=== PATIENT | female | born 1985 | race Hispanic/Latino ===

== ENCOUNTER 2022-08-26 16:54 | Emergency (ER) | payer MEDICAID, SELFPAY ==
--- NOTE | ~2022-08-26 | US_ITS ---
EXAMINATION: US OB <= 14 weeks fetus DATE: 08/26/2022 21:06 INDICATION: Lower abdominal pain during first trimester TECHNIQUE: Real-time pelvic transabdominal and transvaginal ultrasound was performed. COMPARISON: None. FINDINGS: There is a single live intrauterine . The cervical length measures 6.3 cm. The cb centa is anterior. heart motion is identified measuring 161 beats per minute (bpm) by M-mode Do ppler. The following biometric data were obtained: Biparietal diameter (BPD): 2.2 cm; head circumference (HC): 8.0 cm; abdominal circumference (AC): 6.9 cm; femur length (FL): 1.1 cm. These measurements are concordant. Estimated weight is 76 g +/- 11 g, which correlates with the 97th percentile when 03/08/2023 is used as estimated date of delivery. As single measurements, these parameters are each equal to the following estimated gestational ages w ith ranges of +/- 2 standard deviations: BPD: 13 weeks 5 days +/- 1 weeks 1 days. HC: 13 weeks 3 days +/- 1 weeks 1 days. AC: 13 weeks 4 days +/- 1 weeks 5 days. FL: 13 weeks 2 days +/- 1 weeks 3 days. estimated gestational age based solely on measurements from this exam is 13 weeks 4 days +/- 1 weeks 0 days. The ovaries are not visualized however no adnexal abnormality is seen. There is no free fluid in the pelvis. IMPRESSION: 1. Estimated weight is 76 g +/- 11 g, which correlates with the 97th percentile when 03/08/2023 is used as estimated date of delivery. Reviewed, dictated and finalized at location F. L AIRCREWMAN MECHANICAL IMPRESSION: 1. Estimated weight is 76 g +/- 11 g, which correlates with the 97th perc entile when 03/08/2023 is used as estimated date of delivery.
--- NOTE | ~2022-08-26 | US_ITS ---
EXAMINATION: US renal BI DATE: 08/26/2022 21:06 INDICATION: Bilateral flank pain TECHNIQUE: Multiple grayscale and Doppler ultrasound images of the kidneys were obtained. COMPARISON: None. FINDINGS: The right kidney measures 10.8 x 4.9 x 5.8 cm. The left kidney measures 12.0 x 5.3 x 5.4 cm . The kidneys demonstrate normal parenchymal echogenicity. There is no hydronephrosis. The bladder is normal. IMPRESSION: 1. Normal kidneys without hydronephrosis. Reviewed, dictated and finalized at location F. T PRODUCTION COORDINATOR
--- NOTE | ~2022-08-26 | XR_ITS ---
EXAMINATION: XR chest 2V DATE: 08/26/2022 19:55 INDICATION: Shortness of breath TECHNIQUE: PA and lateral views of the chest are obtained. COMPARISON: None available FINDINGS: The lungs are free of acute opacities. No pleural effusion or pneumothorax. The cardiomedia stinal silhouette is normal. The visualized bones and soft tissues are unremarkable. IMPRESSION: 1. No acute cardiopulmonary abnormality. Reviewed, dictated and finalized at location F. HT CONTROL ENGINEER
[2022-08-26 18:51] VITALS: BP 135/86; PULSE 75; RESP 16; TEMP 36.9; O2SAT 97
--- NOTE | 2022-08-26 19:18 | ED.BACK ---
HPI - Back Pain/Injury General Chief Complaint: Back Pain/Injury Stated Complaint: Back pain Time Seen by Provider: 08/26/22 19:05 History of Present Illness HPI Narrative: Patient is a 37-year-old female who is currently about 10 weeks here for evaluation of upper back pain. Patient states the pain is located to the left side of her mid thoracic region. She has not attempted any medicine for her pain because she is unsure what she can take in . Denies any injury to her back. She is reporting some lower abdominal pain on the right. She denies any shortness of breath, chest pain, nausea, vomiting, vaginal bleeding. Related Data Allergies Allergy/AdvReac Type Severity Reaction Status Date / Time No Known Allergies Allergy Verified 08/26/22 19:30 Review of Systems Review of Systems: Gen: Denies fevers or chills Eyes: Denies eye pain or visual change ENT: Denies congestion Respiratory: Denies shortness of breath or cough CV: Denies chest pain or palpitations GI: Denies abdominal pain nausea, emesis or diarrhea : denies burning, urgency, frequency or hematuria Musculoskeletal: Reports upper back pain Neuro: Denies numbness, tingling, weakness or focal weakness Skin: Denies rash Except as documented, all other systems reviewed and negative Exam Narrative: APPEARANCE: Well appearing, no pain in distress, well-nourished. Head: Normocephalic and atraumatic. EYES: PERRLA/EOMI, conjunctivae clear NOSE: No nasal drainage EARS: External ear normal in appearance THROAT: Oropharynx is clear. Mucous membranes are moist. NECK: Supple. No adenopathy, no masses. RESPIRATORY: Airway patent, respirations nonlabored. Clear to auscultation bilaterally, no rales, rhonchi, wheezing. CARDIOVASCULAR: Regular rate and rhythm without murmurs, rubs, or gallops. ABDOMINAL: Normoactive bowel sounds. Soft, nontender, nondistended. No rebound tenderness or guarding. MUSCULOSKELETAL: She has no CVA tenderness bilaterally. No midline tenderness to C, T or L-spine. Extremities are warm and well-perfused. Moves all extremities well. No edema. NEURO: Normal speech. No focal neurologic deficits. SKIN: skin is warm and dry. No rashes. PSYCHIATRIC: Normal affect/mood. Course Vital Signs Vital signs: Vital Signs Temperature 98.5 F 08/26/22 18:51 Pulse Rate 75 08/26/22 18:51 Respiratory Rate 16 08/26/22 18:51 Blood Pressure 135/86 08/26/22 18:51 Pulse Oximetry 97 08/26/22 18:51 Temperature 98.5 F 08/26/22 18:51 Pulse Rate 61 08/26/22 21:30 Respiratory Rate 17 08/26/22 21:30 Blood Pressure 136/81 08/26/22 21:30 Pulse Oximetry 100 08/26/22 21:30 MDM - Back Pain/Injury MDM Narrative Medical decision making narrative: 37-year-old female here for evaluation of upper thoracic back pain in addition to some lower abdominal pain over the past several days. She is nontoxic in appearance and has normal vital signs, her heart and lungs are clear to auscultation. She has no abdominal tenderness on exam. No vaginal bleeding. Urine does show evidence of infection with leuks and white blood cells. Ultrasound obtained due to abdominal pain which shows a live IUP. Renal ultrasound obtained given presence of UTI and questionable flank pain which shows no evidence of hydronephrosis. Chest x-ray is clear. Patient feeling better after Tylenol. Very unlikely to be acute intra-abdominal process given location of pain and normal vital signs, lack of tenderness on exam. She be discharged home with antibiotics to treat for UTI and [employer] follow-up. Return precautions were discussed and she voiced understanding. Lab Data 08/26/22 19:35 08/26/22 19:35 Labs: Lab Results 08/26/22 08/26/22 08/26/22 Range/Units 19:35 19:35 19:37 WBC 11.6 H (4.5-10.0) K/mm3 RBC 4.52 (4.2-5.4) M/mm3 Hgb 14.1 (12.0-15.0) g/dL Hct 40.7 (37.0-47.0) % MCV 90.0 (80-100) fl MCH 31.
[2022-08-26] MEDS: ACETAMINOPHEN 325 MG TABLET 650 MG PO (19:31)
[2022-08-26 19:50] LABS: Basophils Percent Auto 0.3 % (0.2-1.2); Eosinophils Absolute Auto 0.2 K/mm3 (0-0.3); Eosinophils Percent Auto 1.7 % (0-4.4); Hematocrit 40.7 % (37.0-47.0); Hemoglobin 14.1 g/dL (12.0-15.0); Immature Granulocyte Absolute 0.04 K/mm3 (0.00-0.031); Immature Granulocyte Percent A 0.3 % (0-0.5); Lymphocytes Absolute Auto 3.23 K/mm3 (0.9-3.2); Mean Corpuscular HGB Conc 34.6 g/dl (32-36); Mean Corpuscular Hemoglobin 31.2 pg (26-34); Mean Platelet Volume 10.2 fl (7.4-10.4); Monocytes Absolute Auto 0.7 K/mm3 (0.1-0.6); Monocytes Percent Auto 6.4 % (2.6-8.5); Neutrophils Absolute Auto 7.3 K/mm3 (1.3-6.7); Neutrophils Percent Auto 63.3 % (45.5-73.1); Platelet Count Result 282 k/mm3 (150-375); Red Blood Count 4.52 M/mm3 (4.2-5.4); Red Cell Distribution Width 12.7 % (11.5-14.5); White Blood Count 11.6 K/mm3 (4.5-10.0)
[2022-08-26 19:51] LABS: Appearance Urine Clear (Clear); Bilirubin Urine Negative (Negative); Blood Urine 1+ (Negative); Color Urine Yellow (Yellow); Glucose Urine UA Negative (Negative); Ketones Urine Negative (Negative); Leukocyte Esterase Ur Trace LEU/UL (Negative); Nitrate Urine Negative (Negative); Protein Urine Trace mg/dL (Negative); Urobilinogen Urine 0.2 mg/dL (<2.0)
[2022-08-26 19:52] LABS: Add Urine Microscopic? YES
[2022-08-26 19:59] LABS: Alanine Aminotransferase 18 U/L (6-35); Albumin Level 4.3 g/dL (3.5-5.1); Alkaline Phosphatase 68 U/L (38-126); Anion Gap 10 mmol/L (8-16); Aspartate Amino Transferase 19 U/L (14-36); Bilirubin,Total 0.3 mg/dL (0.2-1.3); Blood Urea Nitrogen 9 mg/dL (7-17); Calcium 9.3 mg/dL (8.4-10.2); Carbon Dioxide 22 mmol/L (22-30); Chloride 104 mmol/L (98-107); Estimated CRCL calculation 172 ml/min; Estimated Glomerular Filt Rate > 60; Glucose 117 mg/dL (65-110); Potassium 3.7 mmol/L (3.4-5.0); Sodium 136 mmol/L (137-145)
[2022-08-26 20:26] LABS: Bacteria Urine Trace /hpf; Mucus Urine Rare /lpf; Squamous Epithelial Cell Urine Many /hpf (Few); WBC Urine 0-3 /hpf
[2022-08-26 21:30] VITALS: BP 136/81; PULSE 61; RESP 17; O2SAT 100
== END 2022-08-26 21:31 | disposition home or self-care (01) ==
PROVIDERS: Emergency Provider Physician Assistant
DX: O23.41 Unspecified infection of urinary tract in pregnancy, first trimester (principal); N39.0 Urinary tract infection, site not specified; Z3A.10 10 weeks gestation of pregnancy
CPT/HCPCS: 36415; 71046; 76775; 76801; 80053; 81001; 85025; 99283; A9270